=== PATIENT | male | born 1975 | race Caucasian/White ===

== ENCOUNTER 2024-12-06 07:25 | Day surgery (SDC) | payer OTHER ==
[~2024-12-06] VITALS: Ht 180.3 cm; Wt 110.0 kg
--- NOTE | 2024-12-06 07:00 | NUR ---
[id number] PT ARRIVED TO DAY SURGERY AMBULITORY. INFORMED PT OF EMERGENCY SURGERY THAT WAIT IS UNKNOWN. PT FRUSTERATED AND STATES 'I AM HUNGRY AND THIS IS WHY I BOOKED THIS APPOINTMENT SO EARLY.' INFORMED PT THAT WAIT TIME MAY BE AN HOUR OR MOR. PT GIVEN OPTION TO GET CHECKED IN NOW OR THIS RN WILL CALL PT WHEN EMERGENCY SURGERY IS DONE AND PT WILL RETURN. PT OPTED TO LEAVE AND RETURN WHEN CALLED. PT PHONE NUMBER IS [phone]. INFORMED PT THAT HE IS NOT TO EAT OR DRINK ANYTHING IF HE IS TO LEAVE THE HOSPITAL. PT STATES UNDERSTANDING OF THIS.
[~2024-12-06 07:25] MED LIST: COZAAR100 MG PO; HYDROCHLOROTHIA25 MG PO; IBLOOD GLUCOSE TEST STRIP 1 EA TEST VI PRN; LACTATED RINGER'S 1,000 ML IV SCH; LIDOCAINE HCL 1% 5 ML SDV INJ ONE; NORVASC10 MG PO; OMEPRAZOLE20 MG PO
[2024-12-06 07:35] VITALS: BP 150/97
--- NOTE | 2024-12-06 07:58 | NUR ---
VISITED DURING SPIRITUAL CARE ROUNDS. PT IN OVERALL GOOD SPIRITS; NO IMMEDIATE NEEDS. ATTENDANT SALES PROVIDED SUPPORTIVE PRESENCE, HOSPITALITY, PRAYER, FACILITATED INTERACTION WITH THERAPY ANIMAL. PT EXPRESSED GRATITUDE.
[2024-12-06] MEDS ORDERED: LIDOCAINE HCL 2% 5 ML SDV ONE (08:15)
--- NOTE | 2024-12-06 09:45 | NUR ---
12/06/24 0945 Diana Ramirez 0939: PT ARRIVES TO PACU NON AROUSAL/REACTIVE. REPORT RECEIVED FROM WELL REACTIVATOR OPERATOR AND EMPLOYEE BENEFITS ADMINISTRATOR. HE HAS AN ORAL AIRWAY IN PLACE AND IS ACTIVELY SNORING. LOREE 0943: PT AUDIBLY PASSES GAS.
[2024-12-06 10:17] VITALS: BP 157/112
== END 2024-12-06 10:28 | disposition home or self-care (01) ==
LOC: DS 07:25 → OPS 07:25 → DS 08:10 → OPS 08:15 → DS 08:15 → OPS 10:28
PROVIDERS: ATTEND Surgery
PROC: 0DB68ZX Excision of Stomach, Via Natural or Artificial Opening Endoscopic, Diagnostic (ICD-10-PCS; 2024-12-06)
PROC: 0DBP8ZZ Excision of Rectum, Via Natural or Artificial Opening Endoscopic (ICD-10-PCS; principal; 2024-12-06 08:10)
PROC: 0DBN8ZZ Excision of Sigmoid Colon, Via Natural or Artificial Opening Endoscopic (ICD-10-PCS; 2024-12-06 08:10)
DX: Z12.11 Encounter for screening for malignant neoplasm of colon (principal); K63.5 Polyp of colon; K29.50 Unspecified chronic gastritis without bleeding; K21.9 Gastro-esophageal reflux disease without esophagitis; I10 Essential (primary) hypertension; K76.0 Fatty (change of) liver, not elsewhere classified; Z79.899 Other long term (current) drug therapy; Z89.511 Acquired absence of right leg below knee
CPT/HCPCS: 00813; 36415; 87077; 88305; J2003; J2704; J7121